=== PATIENT | male | born 1990 | race Caucasian/White ===

== ENCOUNTER 2021-11-30 16:34 | Inpatient (IN) | payer SELFPAY ==
[2021-11-30] MEDS ORDERED: Famotidine 20 MG/2 ML SDV IVPUSH PRN (17:30)
[2021-11-30] MEDS ORDERED: methylPREDNISolone Sodium Succinate 125 MG/2 ML SDV IVPUSH PRN (17:30)
[2021-11-30] MEDS ORDERED: Sodium Chloride 0.9% 10 ML Syringe FLUSH SCH (17:30)
[2021-11-30] MEDS ORDERED: EPINEPHrine 1 MG/1 ML Amp IM PRN (17:30)
[2021-11-30] MEDS ORDERED: diphenhydrAMINE 50 MG/ML SDV IVPUSH PRN (17:30)
[2021-11-30] MEDS ORDERED: Iopamidol 755 Mg/ML 100 ML Bottle IVPUSH ONE (17:45)
[2021-11-30 17:55] LABS: PTT,PARTIAL THROMBOPLSTIN TIME 32.2 SEC (20.5-30.9)
[2021-11-30] MEDS: Sodium Chloride 0.9% 1,000 ML IV SCH (17:57)
[2021-11-30] MEDS: Zinc Sulfate 220 MG Cap PO SCH (17:58)
[2021-11-30] MEDS: Cholecalciferol (Vitamin D3) 25 MCG Tab PO SCH (17:58)
[2021-11-30] MEDS: Acetaminophen 325 MG Tab PO PRN (17:58)
[2021-11-30 18:01] LABS: PCO2 ARTERIAL,POC 32 mmHg (35-48)
[2021-11-30] MEDS ORDERED: Sodium Chloride 0.9% 10 ML Syringe FLUSH PRN (18:29)
[2021-11-30] MEDS: Ascorbic Acid 500 MG Tab PO SCH (19:32)
[2021-11-30] MEDS: dexAMETHasone 2 MG, dexAMETHasone 4 MG PO SCH ×2 (19:32)
[2021-11-30 20:23] LABS: PCO2 ARTERIAL,POC 34 mmHg (35-48)
[2021-12-01] MEDS: Sodium Chloride 0.9% 1,000 ML IV SCH ×2 (00:36→07:37)
[2021-12-01 06:57] LABS: PTT,PARTIAL THROMBOPLSTIN TIME 30.6 SEC (20.5-30.9)
[2021-12-01 07:03] LABS: CHLORIDE,CL 102 mmol/L (98-107); SODIUM,NA 134 mmol/L (136-145)
[2021-12-01 07:05] LABS: ANION GAP 9.4 mmol/L (5-15)
[2021-12-01] MEDS: dexAMETHasone 2 MG, dexAMETHasone 4 MG PO SCH ×2 (07:38)
[2021-12-01] MEDS: Zinc Sulfate 220 MG Cap PO SCH (07:38)
[2021-12-01] MEDS: Ascorbic Acid 500 MG Tab PO SCH ×2 (07:38→19:43)
[2021-12-01] MEDS: Cholecalciferol (Vitamin D3) 25 MCG Tab PO SCH (07:38)
[2021-12-01] MEDS: Acetaminophen 325 MG Tab PO PRN ×2 (07:39→11:23)
[2021-12-01] MEDS ORDERED: Non-Formulary Medication 1 Each PO SCH (08:00)
[2021-12-01] MEDS: Enoxaparin 40 MG/0.4 ML Syringe SUBCUT SCH (11:23)
[2021-12-01] MEDS: fluvoxaMINE 100 MG Tab PO SCH ×2 (13:31→19:43)
[2021-12-02 07:56] LABS: CHLORIDE,CL 103 mmol/L (98-107); SODIUM,NA 136 mmol/L (136-145)
[2021-12-02 07:58] LABS: ANION GAP 9.1 mmol/L (5-15)
[2021-12-02] MEDS: Acetaminophen 325 MG Tab PO PRN (08:09)
[2021-12-02] MEDS: Ascorbic Acid 500 MG Tab PO SCH ×2 (08:09→19:33)
[2021-12-02] MEDS: fluvoxaMINE 100 MG Tab PO SCH ×2 (08:10→19:33)
[2021-12-02] MEDS: Zinc Sulfate 220 MG Cap PO SCH (08:10)
[2021-12-02] MEDS: dexAMETHasone 2 MG, dexAMETHasone 4 MG PO SCH ×2 (08:10)
[2021-12-02] MEDS: Cholecalciferol (Vitamin D3) 25 MCG Tab PO SCH (08:10)
[2021-12-02] MEDS: Enoxaparin 40 MG/0.4 ML Syringe SUBCUT SCH (11:43)
[2021-12-03 08:18] LABS: CHLORIDE,CL 104 mmol/L (98-107); SODIUM,NA 138 mmol/L (136-145)
[2021-12-03 08:19] LABS: ANION GAP 11.1 mmol/L (5-15)
[2021-12-03] MEDS: Ascorbic Acid 500 MG Tab PO SCH (08:50)
[2021-12-03] MEDS: Zinc Sulfate 220 MG Cap PO SCH (08:50)
[2021-12-03] MEDS: Cholecalciferol (Vitamin D3) 25 MCG Tab PO SCH (08:50)
[2021-12-03] MEDS: dexAMETHasone 2 MG, dexAMETHasone 4 MG PO SCH ×2 (08:50)
[2021-12-03] MEDS: fluvoxaMINE 100 MG Tab PO SCH (08:50)
[2021-12-03] MEDS: Enoxaparin 40 MG/0.4 ML Syringe SUBCUT SCH (12:19)
== END 2021-12-03 13:10 | disposition home or self-care (01) | DRG 177 ==
LOC: VM.MS 16:34 → UNDODISIN 12-03 13:10
PROVIDERS: ADMIT Family Medicine; ATTEND Family Medicine
PROC: XW0 New Technology, Anatomical Regions, Introduction (ICD-10-PCS; principal; 2021-11-30)
PROC: 3E0DX3Z Introduction of Anti-inflammatory into Mouth and Pharynx, External Approach (ICD-10-PCS; 2021-11-30)
PROC: 8E0ZXY6 Isolation (ICD-10-PCS; 2021-11-30)
DX: U07.1 COVID-19 (principal); J12.82 Pneumonia due to coronavirus disease 2019; J96.01 Acute respiratory failure with hypoxia; M62.82 Rhabdomyolysis; E87.3 Alkalosis; E66.9 Obesity, unspecified; R79.1 Abnormal coagulation profile; Z23 Encounter for immunization; Z68.38 Body mass index [BMI] 38.0-38.9, adult
CPT/HCPCS: 36415; 36600; 71045; 71275; 80053; 81001; 82550; 82728; 82803; 83605; 83615; 83735; 83880; 84145; 85025; 85610; 85730; 86140; 87040; 87070; 87086; 87205; 93005; A9270-GY; J1650; J7030; J8540; Q0247; Q9967